=== PATIENT | female | born 2000 | race Asian ===

== ENCOUNTER 2024-09-08 11:20 | Outpatient (CLI) | payer BC, SELFPAY ==
[2024-09-08 18:30] LABS: Bacterial Vaginosis* Negative (Negative); Candida glab/krus NOT DETECTED (No Detected); Candida species NOT DETECTED (No Detected); Trichomonas vaginalis NOT DETECTED (No Detected)
[2024-09-08 19:01] LABS: Chlamydia DNA Amplified* NOT DETECTED (No Detected); GC DNA Amplified* NOT DETECTED (No Detected)
[2024-09-10 12:08] LABS: HPV Source Cervix; HPV, High Risk by TMA Not Detected
== END 2024-09-08 11:21 | disposition home or self-care (01) ==
PROVIDERS: Visit Provider Registered Nurse
DX: Z01.419 Encounter for gynecological examination (general) (routine) without abnormal findings (principal); Z11.3 Encounter for screening for infections with a predominantly sexual mode of transmission; E28.2 Polycystic ovarian syndrome; R63.5 Abnormal weight gain
CPT/HCPCS: 81513; 83001; 83498; 84146; 84403; 84443; 87481; 87491; 87591; 87624; 87625; 87661; 88141; 88142

== ENCOUNTER 2024-09-14 08:58 | Outpatient (CLI) | payer BC, SELFPAY | END 2024-09-14 08:59 | disposition home or self-care (01) | PROVIDERS: Visit Provider Registered Nurse | DX: Z00.00 Encounter for general adult medical examination without abnormal findings (principal); Z13.6 Encounter for screening for cardiovascular disorders | CPT/HCPCS: 80061 ==